=== PATIENT | male | born 1965 | race Two or more races ===

== ENCOUNTER → 2016-06-25 | Outpatient (CLI) | payer BC ==
--- NOTE | ~2016-06-25 | CR181 ---
[facility] A Service of [facility] RADIOLOGY TEXT RESULTS PATIENT: MARIZA METZ LOCATION: [facility] : 65 UNIT #: [id number] AGE: [address]: Jazzmine Holm APRN SEX: M ORDER DR: [id number] [facility] [address] [place], [place] [address] [id number] O MR#: [id number] Acc #: [id number] NAME: MARIZA METZ : 1965 SEX: M STUDY DATE/TIME: 06/25/2016 10:46 UNIT: [facility] ROOM: STUDY DESCRIPTION: CR Lumbar Spine 2 or 3 Views Attending Physician: Jazzmine Holm Aprn Referring Physician: Jazzmine Holm Aprn Ordering Physician: Jazzmine Holm Aprn Primary Care Physician: Primary Care Physician No MEDICAL IMAGING REPORT This report is preliminary unless electronic signature is present EXAM Lumbar spine 3 views with all lateral including lateral flexion and extension views HISTORY Low back pain for 7 months. FINDINGS In neutral, alignment is normal. There is some mild discogenic change but no acute abnormality. There is limited flexion but no abnormal motion but in extension there is actually a retrolisthesis at L4-5 not seen in neutral or flexion. L4-5 retrolisthesis is probably 5-6 mm. Dictated by... Jayce Russell M.D. THIS IS AN ELECTRONICALLY VERIFIED REPORT Jayce Russell M.D. at 06/26/2016 3:56 PM TEV/carlos TD: 06/26/2016 09:17 JOB #: [id number] MEDICAL IMAGING REPORT Page 1 of 1 COPY
== END | disposition home or self-care (01) ==
LOC: CRAD 09:55
DX: M54.5 Low back pain (principal)
CPT/HCPCS: 72100